=== PATIENT | male | born 1950 | race Caucasian/White ===

== ENCOUNTER 2017-06-09 19:18 | Emergency (ER) | payer MEDICARE, OTHER ==
--- NOTE | ~2017-06-09 | ER ---
PATIENT'S NAME: CHAN WASHINGTON [facility] AGE: 67 Y [address] ROOM: [place] [address] LOCATION: [facility] ADMIT DATE: 06/09/2017 ER/Outpatient Report DISCHARGE DATE: 06/09/2017 FAMILY PHYSICIAN: Yadiel Reese MD ATTENDING PHYSICIAN: Nicko Easton TIME SEEN: 1945 hours. HISTORY OF PRESENT ILLNESS: The patient is a 67-year-old male, said he raised up from his camper and cut his head on a latch. The patient denied any loss of consciousness, but does present with a 4 cm laceration to the top of his head. Tetanus is current. ALLERGIES: NONE. CURRENT MEDICATIONS: See copied list. PAST MEDICAL HISTORY: Hypertension and coronary artery disease. PAST SURGICAL HISTORY: Heart catheterization, colonoscopy, and back and hand surgery. SOCIAL HISTORY: Nonsmoker. Alcohol: Daily beer. . REVIEW OF SYSTEMS: HEAD and EENT: Complains of no headache or neck pain. NEUROLOGIC: No numbness or tingling to his extremities. OBJECTIVE: VITAL SIGNS: Blood pressure 133/76, his temp 98.7, respiratory rate 16, pulse 69, O2 sats 95%. GENERAL APPEARANCE: He is alert, cooperative. HEENT: Exam of his head shows normal male balding pattern. Laceration was present at the top of his head, approximately 4 cm, did not appear full thickness. ASSESSMENT: 4 cm scalp laceration. PLAN AND TREATMENT: PATIENT'S NAME: CHAN WASHINGTON [facility] AGE: 67 Y [address] ROOM: [place] [address] LOCATION: [facility] ADMIT DATE: 06/09/2017 ER/Outpatient Report DISCHARGE DATE: 06/09/2017 FAMILY PHYSICIAN: Yadiel Reese MD ATTENDING PHYSICIAN: Nicko Easton The area was anesthetized with 1% Xylocaine with epinephrine. It was irrigated with normal saline. The wound edges were approximated with huma x6, topical antibiotic applied. The patient was given a wound handout. Advised to have the huma removed in about 5 days. RAMA JOHNSON FOR MD MEAGAN AQUINOJ/modl /[id number] d: 06/10/17 0208 t: 06/14/17 1213, OUTPATIENT REPORT
== END 2017-06-09 20:05 | disposition disaster alternative care site (69) ==
LOC: GACC 19:18
PROC: 0HQ0XZZ Repair Scalp Skin, External Approach (ICD-10-PCS; principal; 2017-06-09)
DX: S01.01XA Laceration without foreign body of scalp, initial encounter (principal); I10 Essential (primary) hypertension; I25.10 Atherosclerotic heart disease of native coronary artery without angina pectoris; Z98.890 Other specified postprocedural states; Z79.82 Long term (current) use of aspirin; Z79.899 Other long term (current) drug therapy; W22.8XXA Striking against or struck by other objects, initial encounter